=== PATIENT | female | born 1955 | race Caucasian/White ===

== ENCOUNTER → 2019-06-21 | Outpatient (CLI) | payer BC ==
[2019-06-21 09:59] LABS: African American GFR (CKD) >90 (>60 ml/min/1.73 sqM); Blood Urea Nitrogen 15 mg/dL (7-17); Non-African American GFR(CKD) >90 (>60 ml/min/1.73 sqM)
--- NOTE | 2019-06-21 11:44 | CT ---
EXAMINATION TYPE: CT urogram wo/w con DATE OF EXAM: 06/21/2019 COMPARISON: None HISTORY: 63-year-old female Irritable bladder-per patient, unspecified hydronephrosis TECHNIQUE: Contiguous axial scanning of the abdomen and pelvis performed with IV Contrast, patient in jected with 100 mL of Isovue 300. Delayed images through the kidneys and bladder were obtained. Coron al/sagittal reconstructions performed. 3-D reconstructions generated on a dedicated workstation. CT DLP: 2718 mGycm Automated exposure control for dose reduction was used. FINDINGS: Heart normal size without pericardial effusion. Some strandy atelectasis left base without pleural ef fusion. Small hiatal hernia. No focal liver lesion or biliary ductal dilatation. Portal venous system is patent. Gallbladder, adrenal glands, spleen, and pancreas appear within normal limits. Numerous parapelvic cysts involving the left kidney measuring up to 3.2 cm. Small cortical cysts are present measuring up to 1.1 cm and left kidney. No abnormal filling defect within the left renal collecting system or along the course of the left ur eter. There is severe hydronephrosis on the right with severe thinning of the renal cortex. Only minimal co ntrast is seen layering in the renal collecting systems even after 25 minutes. No dilated ureter is i dentified. No dilated small bowel, free fluid, or free air. No mesenteric or retroperitoneal lymphadenopathy. Scattered mild stool. No pericolic inflammatory change. The bladder is opacified with contrast and shows no suspicious mural based filling defect. Uterus ant everted. Neither ovary is well seen, probably small and postmenopausal. Pelvic phleboliths. No abnorm al fluid collection in the pelvis or pelvic lymph adenopathy. Both. Benign bone islands about the right greater than left hips. Facet arthropathy lower lumbar spin e. Degenerative disc disease L4-L5. IMPRESSION: 1. SEVERE RIGHT-SIDED HYDRONEPHROSIS WITH PRONOUNCED RENAL CORTICAL THINNING. NO EXCRETION FROM THE R IGHT KIDNEY EVEN AFTER WAITING 25 MINUTES. 2. NUMEROUS PARAPELVIC CYSTS WITHIN THE LEFT KIDNEY AND A COUPLE RENAL CORTICAL CYSTS. NO SUSPICIOUS ENHANCING RENAL LESION, SUSPICIOUS FILLING DEFECT WITHIN THE LEFT RENAL COLLECTING SYSTEM, OR WITHIN THE LEFT URETER. 3. SMALL HIATAL HERNIA.
== END | disposition home or self-care (01) ==
LOC: RADCTMAIN 08:33
PROVIDERS: ATTEND Urology
DX: N13.30 Unspecified hydronephrosis (principal); K44.9 Diaphragmatic hernia without obstruction or gangrene; N28.1 Cyst of kidney, acquired; N28.89 Other specified disorders of kidney and ureter; Z88.0 Allergy status to penicillin; Z88.1 Allergy status to other antibiotic agents; Z88.2 Allergy status to sulfonamides
CPT/HCPCS: 82565; 84520; 74178; 36415; 74400; Q9967

== ENCOUNTER 2021-02-15 09:30 | Emergency (ER) | payer BC ==
[2021-02-15] MEDS ORDERED: ACETAMINOPHEN TAB 500 MG TAB PO STA (09:51)
[2021-02-15] MEDS ORDERED: SODIUM CHLORIDE 0.9% 1,000 ML IV STA (09:51)
[2021-02-15] MEDS ORDERED: SODIUM CHLORIDE 0.9% 500 ML 500 ML IV STA (09:51)
--- NOTE | 2021-02-15 09:54 | ED ---
General Adult HPI - General Chief complaint: Dizziness Stated complaint: Dizziness/Congestion Time Seen by Provider: 02/15/21 09:37 Source: patient, RN notes reviewed Mode of arrival: wheelchair Limitations: no limitations - History of Present Illness Initial comments: This is a 65-year-old female presents emergency Department chief complaint of generalized fatigue, not feeling well over lasted 4 days. Patient states that she has had a productive cough, nasal congestion. She states when she is walking she does not feel likeshe states she just feels more weak feeling. No chest pain patient did not reported fever at home though found afebrile here is not taking any recent Tylenol Motrin patient denies complaints of vomiting, diarrhea, abdominal pain, dysuria hematuria denies any sick contacts. Patient was vaccinated for COVID-19 in October. Patient denies any neck pain or neck stiffness - Related Data Previous Rx's Medication Instructions Recorded Azithromycin [Zithromax Z-pack (6 0 mg PO DIRECTED #1 pack 02/15/21 tabs)] Allergies Allergy/AdvReac Type Severity Reaction Status Date / Time nitrofurantoin Allergy Unknown Verified 02/15/21 09:35 [From Macrobid] Penicillins Allergy Unknown Verified 02/15/21 09:35 Sulfa (Sulfonamide Allergy Unknown Verified 02/15/21 09:35 Antibiotics) Review of Systems ROS Statement: Those systems with pertinent positive or pertinent negative responses have been documented in the HPI. ROS Other: All systems not noted in ROS Statement are negative. Past Medical History Past Medical History: Hypertension, Thyroid Disorder History of Any Multi-Drug Resistant Organisms: None Reported Additional Past Surgical History / Comment(s): D&C, ovaries removed Past Psychological History: Anxiety, Depression Smoking Status: Never smoker Past Alcohol Use History: None Reported Past Drug Use History: None Reported General Exam Limitations: no limitations General appearance: alert, in no apparent distress Head exam: Present: atraumatic, normocephalic, normal inspection Eye exam: Present: normal appearance, PERRL, EOMI. Absent: scleral icterus, conjunctival injection, periorbital swelling ENT exam: Present: normal exam, normal oropharynx, mucous membranes moist Neck exam: Present: normal inspection, full ROM. Absent: tenderness, meningismus, lymphadenopathy Respiratory exam: Present: normal lung sounds bilaterally. Absent: respiratory distress, wheezes, rales, rhonchi, stridor Cardiovascular Exam: Present: regular rate, normal rhythm, normal heart sounds. Absent: systolic murmur, diastolic murmur, rubs, gallop, clicks GI/Abdominal exam: Present: soft, normal bowel sounds. Absent: distended, tenderness, guarding, rebound, rigid Neurological exam: Present: alert, oriented X3, CN II-XII intact, reflexes normal. Absent: motor sensory deficit Skin exam: Present: warm, dry, intact, normal color. Absent: rash Course Vital Signs 02/15/21 09:31 Temperature 100.4 F H Pulse Rate 76 Respiratory 18 Rate Blood Pressure 161/84 O2 Sat by Pulse 96 Oximetry EKG Findings - EKG Comments: EKG Findings:: EKG performed at 9:41 normal sinus rhythm rate of 71. 166/94 QT/QTC 404/439 Medical Decision Making - Medical Decision Making 65-year-old female presented for cough congestion fever. Patient on her posterior left lung pneumonia. Patient was started on antibiotics. Patient is currently stable, patient states she felt comfortable discharged on oral anti biotics. - Lab Data Result diagrams: 02/15/21 09:53 02/15/21 09:53 Lab Results 02/15/21 02/15/21 02/15/21 Range/Units 09:53 09:53 09:53 WBC 5.1 (3.8-10.6) k/uL RBC 4.57 (3.80-5.40) m/uL Hgb 14.2 (11.4-16.0) gm/dL Hct 40.6 (34.0-46.0) % MCV 88.9 (80.0-100.0) fL MCH 31.0 (25.0-35.0) pg MCHC 34.9 (31.0-37.0) g/dL RDW 12.6 (11.5-15.5) % Plt Count 181 (150-450) k/uL MPV 6.8 Neutrophils % 78 % Lymphocytes % 13 % Monocytes % 6 % Eosinophils % 2 % Basophils % 1 % Neutrophils # 4.0 (1.3-7.7) k/uL Lymphocytes # 0.6 L (1.0-4.8) k/uL Monocytes # 0.3 (0-1.0) k/uL Eosinophils # 0.1 (0-0.7) k/uL Basophils # 0.1 (0-0.2) k/uL Sodium 137 (137-145) mmol/L Potassium 4.0 (3.5-5.1) mmol/L Chloride 105 (98-107) mmol/L Carbon Dioxide 24 (22-30) mmol/L Anion Gap 8 mmol/L BUN 10 (7-17) mg/dL Creatinine 0.59 (0.52-1.04) mg/dL Est GFR (CKD-EPI)AfAm >90 (>60 ml/min/1.73 sqM) Est GFR (CKD-EPI)NonAf >90 (>60 ml/min/1.73 sqM) Glucose 108 H (74-99) mg/dL Plasma Lactic Acid Masood (0.7-2.0) mmol/L Calcium 9.3 (8.4-10.2) mg/dL Total Bilirubin 0.4 (0.2-1.3) mg/dL AST 32 (14-36) U/L ALT 18 (4-34) U/L Alkaline Phosphatase 107 (38-126) U/L Troponin I (0.000-0.034) ng/mL Total Protein 7.5 (6.3-8.2) g/dL Albumin 4.3 (3.5-5.0) g/dL Urine Color Yellow Urine Appearance Cloudy H (Clear) Urine pH 6.5 (5.0-8.0) Ur Specific [place] 1.016 (1.001-1.035) Urine Protein Negative (Negative) Urine Glucose (UA) Negative (Negative) Urine Ketones Negative (Negative) Urine Blood Negative (Negative) Urine Nitrite Negative (Negative) Urine Bilirubin Negative (Negative) Urine Urobilinogen <2.0 (<2.0) mg/dL Ur Leukocyte Esterase Large H (Negative) Urine RBC 1 (0-5) /hpf Urine WBC 6 H (0-5) /hpf Ur Squamous Epith Cells 2 (0-4) /hpf Urine Bacteria Rare H (None) /hpf Urine Mucus Rare H (None) /hpf Coronavirus (PCR) (Not Detectd) 02/15/21 02/15/21 02/15/21 Range/Units 09:53 09:53 09:53 WBC (3.8-10.6) k/uL RBC (3.80-5.40) m/uL Hgb (11.4-16.0) gm/dL Hct (34.0-46.0) % MCV (80.0-100.0) fL MCH (25.0-35.0) pg MCHC (31.0-37.0) g/dL RDW (11.5-15.5) % Plt Count (150-450) k/uL MPV Neutrophils % % Lymphocytes % % Monocytes % % Eosinophils % % Basophils % % Neutrophils # (1.3-7.7) k/uL Lymphocytes # (1.0-4.8) k/uL Monocytes # (0-1.0) k/uL Eosinophils # (0-0.7) k/uL Basophils # (0-0.2) k/uL Sodium (137-145) mmol/L Potassium (3.5-5.1) mmol/L Chloride (98-107) mmol/L Carbon Dioxide (22-30) mmol/L Anion Gap mmol/L BUN (7-17) mg/dL Creatinine (0.52-1.04) mg/dL Est GFR (CKD-EPI)AfAm (>60 ml/min/1.73 sqM) Est GFR (CKD-EPI)NonAf (>60 ml/min/1.73 sqM) Glucose (74-99) mg/dL Plasma Lactic Acid Masood 0.9 (0.7-2.0) mmol/L Calcium (8.4-10.2) mg/dL Total Bilirubin (0.2-1.3) mg/dL AST (14-36) U/L ALT (4-34) U/L Alkaline Phosphatase (38-126) U/L Troponin I <0.012 (0.000-0.034) ng/mL Total Protein (6.3-8.2) g/dL Albumin (3.5-5.0) g/dL Urine Color Urine Appearance (Clear) Urine pH (5.0-8.0) Ur Specific [place] (1.001-1.035) Urine Protein (Negative) Urine Glucose (UA) (Negative) Urine Ketones (Negative) Urine Blood (Negative) Urine Nitrite (Negative) Urine Bilirubin (Negative) Urine Urobilinogen (<2.0) mg/dL Ur Leukocyte Esterase (Negative) Urine RBC (0-5) /hpf Urine WBC (0-5) /hpf Ur Squamous Epith Cells (0-4) /hpf Urine Bacteria (None) /hpf Urine Mucus (None) /hpf Coronavirus (PCR) Not Detected (Not Detectd) Disposition Clinical Impression: Pneumonia Disposition: HOME SELF-CARE Condition: Stable Instructions (If sedation given, give patient instructions): Pneumonia (ED) Additional Instructions: Please return to the Emergency Department if symptoms worsen or any other concerns. Prescriptions: Azithromycin [Zithromax Z-pack (6 tabs)] 0 mg PO DIRECTED #1 pack Is patient prescribed a controlled substance at d/c from ED?: No Referrals: Talisha Carroll DO [Primary Care Provider] - 1-2 days Time of Disposition: 10:58
[2021-02-15 10:05] LABS: Basophils # (A) 0.1 k/uL (0-0.2); Basophils % (A) 1 %; Eosinophils # (A) 0.1 k/uL (0-0.7); Eosinophils % (A) 2 %; HCT 40.6 % (34.0-46.0); HGB 14.2 gm/dL (11.4-16.0); Lymphocytes # (A) 0.6 k/uL (1.0-4.8); Lymphocytes % (A) 13 %; MCHC 34.9 g/dL (31.0-37.0); MCV 88.9 fL (80.0-100.0); Mean Platelet Volume 6.8; Monocytes # (A) 0.3 k/uL (0-1.0); Monocytes % (A) 6 %; Neutrophils % (A) 78 %; Platelet Count 181 k/uL (150-450); RBC 4.57 m/uL (3.80-5.40); RDW 12.6 % (11.5-15.5); WBC 5.1 k/uL (3.8-10.6)
[2021-02-15 10:17] LABS: Appearance,Urine Cloudy (Clear); Bacteria,Urine Rare /hpf; Bilirubin,Urine Negative (Negative); Blood,Urine Negative (Negative); Color,Urine Yellow; Glucose,Urine (UA) Negative (Negative); Ketones,Urine Negative (Negative); Leukocyte Esterase,Urine Large (Negative); Mucus,Urine Rare /hpf; Nitrite,Urine Negative (Negative); PH, Urine 6.5 (5.0-8.0); Protein,Urine Negative (Negative); RBC,Urine 1 /hpf (0-5); Specific Gravity,Urine 1.016 (1.001-1.035); Squamous Epithelial Cell,Urine 2 /hpf (0-4); Urobilinogen,Urine <2.0 mg/dL (<2.0); WBC,Urine 6 /hpf (0-5)
[2021-02-15 10:18] LABS: ALT 18 U/L (4-34); AST 32 U/L (14-36); African American GFR (CKD) >90 (>60 ml/min/1.73 sqM); Albumin 4.3 g/dL (3.5-5.0); Alkaline Phosphatase 107 U/L (38-126); Anion Gap 8 mmol/L; Blood Urea Nitrogen 10 mg/dL (7-17); Calcium 9.3 mg/dL (8.4-10.2); Carbon Dioxide 24 mmol/L (22-30); Chloride 105 mmol/L (98-107); Glucose 108 mg/dL (74-99); Non-African American GFR(CKD) >90 (>60 ml/min/1.73 sqM); Sodium 137 mmol/L (137-145); Total Bilirubin 0.4 mg/dL (0.2-1.3); Total Protein 7.5 g/dL (6.3-8.2)
--- NOTE | 2021-02-15 10:19 | XR ---
EXAMINATION TYPE: XR chest 2V DATE OF EXAM: 02/15/2021 COMPARISON: None INDICATION: Fever, cough, congestion TECHNIQUE: Frontal and lateral views of the chest are obtained. FINDINGS: The heart size is normal. The pulmonary vasculature is normal. The lateral projection there is suggestion of a small posterior infiltrate overlying the spine. This is greater than expected for typical vascularity. Correlate for pneumonia at this location.. IMPRESSION: 1. Suspected posterior pneumonia. Follow-up can be performed.
[2021-02-15] MEDS ORDERED: AZITHROMYCIN 250 MG TAB PO STA (10:56)
[2021-02-15] MEDS ORDERED: cefTRIAXone IN SWFI 1,000 MG/10 ML SYRINGE IVP STA (10:56)
[2021-02-15 11:05] VITALS: BP 147/83; PULSE 74; RESP 20; TEMP 99.1
== END 2021-02-15 11:24 | disposition home or self-care (01) ==
LOC: EC 09:30
DX: J18.9 Pneumonia, unspecified organism (principal); I10 Essential (primary) hypertension; E07.9 Disorder of thyroid, unspecified; F32.9 Major depressive disorder, single episode, unspecified; Z90.722 Acquired absence of ovaries, bilateral
CPT/HCPCS: 36415; 93005; 80053; 83605; 84484; 85025; 81001; 87040; 87635; 71046; 99285; 96374; 96361 ×2; J0696

== ENCOUNTER 2022-12-10 09:19 | Day surgery (SDC) | payer MEDICARE ==
[~2022-12-10 09:19] MED LIST: LACTATED RINGERS 1,000 ML IV SCH; LIDOCAINE 1% (10MG/ML) FOR IV START INTRADERMA PRN
[2022-12-10 10:09] VITALS: TEMP 98
[2022-12-10] MEDS ORDERED: PROPOFOL 10 MG/ML 20 ML VIAL IV ONE (12:12)
[2022-12-10] MEDS ORDERED: LIDOCAINE 2% INJ 20 MG/ML (2 ML VIAL) ONE (12:12)
--- NOTE | 2022-12-10 12:27 | P.PCN ---
Date of Procedure: 12/10/22 Procedure(s) Performed: BRIEF HISTORY: Patient is a 66-year-old, pleasant, .white female scheduled for an upper endoscopy as a part of evaluation of intermittent dysphagia to solids and severe reflux symptoms for the last 1 year duration. PROCEDURE PERFORMED: Esophagogastroduodenoscopy with biopsy and dilation . PREOPERATIVE DIAGNOSIS: Intermittent dysphagia to solids IV sedation per anesthesia. PROCEDURE: After informed consent was obtained, the patient was brought into the endoscopy unit. IV sedation was administered by Anesthesia under continuous monitoring. Initially the Olympus GIF-140 video endoscope was inserted into the mouth. Esophagus intubated without any difficulty. It was gradually advanced into the stomach and duodenum and carefully examined. The bulb and the second part of the duodenum appeared normal. The scope at this time was withdrawn to the stomach, adequately insufflated with air, and upon careful examination, mucosa of the antrum, body, cardia and the fundus appeared normal. The scope was then withdrawn into the esophagus. small hiatal hernia noted. There was a distal esophagus which are identified which was dilated using 15 and 16.5 and have TTS balloon in a sequential fashion for 30 seconds. Findings with dilation there was some oozing identified the site of dilation and hence further dilation was not performed. The rest of the esophagus appeared normal. There were no erosions or ulcerations seen , biopsies were done from the mid and distal esopha alexandra and the patient tolerated the procedure well. IMPRESSION: 1.. Distal esophageal stricture status post balloon dilation using 15 and 16 have TTS balloon as described above 2..Small hiatal hernia Recommendations: Findings of this examination were discussed with the patient as well as her family. She was advised to follow with the biopsy results. She'll be on a clear liquid diet for lunch today. Start on Protonix 40 mg daily and follow antireflux measures.ECOMMENDATIONS: The findings of this examination were discussed with the patient .
[2022-12-10 14:05] VITALS: BP 155/76; PULSE 55; RESP 20
== END 2022-12-10 13:06 | disposition home or self-care (01) ==
LOC: ORWHC2ENDO 09:19
PROVIDERS: ATTEND Internal Medicine Gastroenterology
DX: K21.9 Gastro-esophageal reflux disease without esophagitis (principal); K44.9 Diaphragmatic hernia without obstruction or gangrene; I10 Essential (primary) hypertension; E03.9 Hypothyroidism, unspecified; F41.9 Anxiety disorder, unspecified; F32.A Depression, unspecified; Z79.899 Other long term (current) drug therapy
CPT/HCPCS: 43239; 43249; J2704; J2001; C1726; 88305

== ENCOUNTER 2024-01-03 11:37 | Day surgery (SDC) | payer MEDICARE ==
[2023-12-30 12:28] VITALS: BMI 31.8
[~2024-01-03 11:37] MED LIST changes: -LACTATED RINGERS 1,000 ML IV SCH
[2024-01-03] MEDS: LACTATED RINGERS 1,000 ML IV SCH (12:59)
[2024-01-03 13:00] VITALS: TEMP 98.7
[2024-01-03] MEDS: IV FLUID CONTINUATION 1,000 ML IV ONE (13:02)
[2024-01-03] MEDS ORDERED: PROPOFOL 10 MG/ML 20 ML VIAL IV ONE (13:18)
[2024-01-03] MEDS ORDERED: LIDOCAINE 1% INJ 10MG/ML (20 ML MDV) ONE (13:18)
--- NOTE | 2024-01-03 13:35 | P.PCN ---
Date of Procedure: 01/03/24 Procedure(s) Performed: BRIEF HISTORY: Patient is a 68-year-old pleasant white female scheduled for an elective colonoscopy as a part of screening for colon cancer. PROCEDURE PERFORMED: Colonoscopy. PREOPERATIVE DIAGNOSIS: Screening for colon cancer. IV sedation per Anesthesia. PROCEDURE: After informed consent was obtained, the patient, was brought into the endoscopy unit. IV sedation was administered by Anesthesia under continuous monitoring. Digital rectal examination was normal. Initially the Olympus CF-160 flexible video colonoscope was then inserted in the rectum, gradually advanced into the cecum with mild to moderate difficulty. Careful examination was performed as the scope was gradually being withdrawn. Ileocecal valve and the appendiceal orifice were visualized and appeared normal. Prep was excellent. Mucosa of the cecum, ascending colon, transverse colon, descending colon, s igmoid colon, and rectum appeared normal. retroflexion was performed in the rectum and small internal hemorrhoids s were seen. The patient tolerated the procedure well. IMPRESSION: Normal-appearing colon from rectum to cecum with no evidence of colorectal neoplasia. Small internal hemorrhoids. RECOMMENDATIONS: Findings of this examination were discussed with the patient as well as her family.. She was advised to have repeat screening colonoscopy in 10 years.
[2024-01-03 13:55] VITALS: BP 132/78; PULSE 78; RESP 18
== END 2024-01-03 14:09 | disposition home or self-care (01) ==
LOC: ORWHC2ENDO 11:37
PROVIDERS: ATTEND Internal Medicine Gastroenterology
DX: Z12.11 Encounter for screening for malignant neoplasm of colon (principal); K64.8 Other hemorrhoids; I10 Essential (primary) hypertension; E07.9 Disorder of thyroid, unspecified; F41.8 Other specified anxiety disorders; M81.0 Age-related osteoporosis without current pathological fracture; K21.9 Gastro-esophageal reflux disease without esophagitis; Z88.0 Allergy status to penicillin; Z88.1 Allergy status to other antibiotic agents; Z88.2 Allergy status to sulfonamides; Z79.899 Other long term (current) drug therapy; Z79.890 Hormone replacement therapy
CPT/HCPCS: J2001; J2704; G0121; 45378

== ENCOUNTER 2024-06-13 10:00 | Day surgery (SDC) | payer MEDICARE ==
[2024-06-13] MEDS: IV FLUID CONTINUATION 1,000 ML IV ONE (10:45)
[2024-06-13 10:51] VITALS: RESP 16; TEMP 97.4
[2024-06-13] MEDS: LACTATED RINGERS 1,000 ML IV SCH (11:07)
[2024-06-13] MEDS ORDERED: PROPOFOL 10 MG/ML 20 ML VIAL IV ONE (11:51)
[2024-06-13] MEDS ORDERED: LIDOCAINE 2% (PF) 20 MG/ML 5 ML VIAL ONE (11:51)
--- NOTE | 2024-06-13 12:01 | P.PCN ---
Date of Procedure: 06/13/24 Procedure(s) Performed: BRIEF HISTORY: Patient is a 68-year-old, pleasant, white female scheduled for an upper endoscopy as a part evaluation of GERD and intermittent dysphagia to solids. She did have an EGD with dilation a year ago for distal esophageal stricture. PROCEDURE PERFORMED: Esophagogastroduodenoscopy with biopsy and dilation. PREOPERATIVE DIAGNOSIS: GERD/intermittent dysphagia to solids. IV sedation per anesthesia. PROCEDURE: After informed consent was obtained, the patient was brought into the endoscopy unit. IV sedation was administered by Anesthesia under continuous monitoring. Initially the Olympus GIF-140 video endoscope was inserted into the mouth. Esophagus intubated without any difficulty. It was gradually advanced into the stomach and duodenum and carefully examined. The bulb and the second part of the duodenum appeared normal. The scope at this time was withdrawn to the stomach, adequately insufflated with air, and upon careful examination, mucosa of the antrum, body, cardia and the fundus appeared normal. The scope was then withdrawn into the esophagus. Small hiatal hernia noted. The GE junction was located at 39 cm from the incisors. Distal esophageal stricture which was dilated using 15 and 16 mm TTS balloon for 60 seconds. Following this there was mucosal oozing noted at the site of dilation and hence further dilation was not done. The rest of the esophagus appeared normal. There were no erosions or ulcerations seen and the patient tolerated the procedure well. IMPRESSION: 1. Distal esophageal stricture status post balloon dilation using 15 and 16 mm TTS balloon as described above. 2. Small hiatal hernia. RECOMMENDATIONS: The findings of this examination were discussed with the patient as well as her family. He was advised to start on Prilosec 20 mg daily and follow antireflux measures. Eliquis for 2 hours. Follow-up in the office in 2 to 3 weeks.
[2024-06-13 12:29] VITALS: BP 160/72; PULSE 68
== END 2024-06-13 13:04 | disposition home or self-care (01) ==
LOC: ORWHC2ENDO 10:00
PROVIDERS: ATTEND Internal Medicine Gastroenterology
DX: K22.2 Esophageal obstruction (principal); K21.9 Gastro-esophageal reflux disease without esophagitis; K44.9 Diaphragmatic hernia without obstruction or gangrene; E07.9 Disorder of thyroid, unspecified; F41.9 Anxiety disorder, unspecified; F32.A Depression, unspecified; Z79.890 Hormone replacement therapy; Z79.899 Other long term (current) drug therapy; Z88.0 Allergy status to penicillin; Z88.2 Allergy status to sulfonamides; Z88.8 Allergy status to other drugs, medicaments and biological substances
CPT/HCPCS: 43249; J2704; J2003; C1726